=== PATIENT | female | born 1990 | race African-American/Black ===

== ENCOUNTER 2017-07-05 12:30 | Emergency (ER) | payer SELFPAY | END 2017-07-05 14:18 | disposition home or self-care (01) | LOC: ERS 12:30 | DX: J01.90 Acute sinusitis, unspecified (principal); E11.9 Type 2 diabetes mellitus without complications; F31.9 Bipolar disorder, unspecified; I10 Essential (primary) hypertension; Z79.84 Long term (current) use of oral hypoglycemic drugs; Z79.899 Other long term (current) drug therapy | CPT/HCPCS: 87081; 87430; 99283 ==

== ENCOUNTER 2017-07-20 09:34 | Emergency (ER) | payer SELFPAY ==
[2017-07-20 10:06] LABS: Bilirubin Negative (Negative); Blood, Urine Negative (Negative); Glucose, Urine (Dipstick) Negative (Negative); Ketone, Urine Negative (Negative); Nitrite Negative (Negative); Protein, Urine (Dipstick) Trace mg/dL (Neg-Trace); Urobilinogen 0.2 mg/dL (0.2-1.0)
[2017-07-20 10:33] LABS: #Eosinphils 0.2 thou/uL (0.0-0.7); #Lymphocytes 3.1 thou/uL (1.20-3.40); #Monocytes 0.4 thou/uL (0.11-0.59); #Neutrophils 2.6 thou/uL (1.40-6.50); %Basophils 0.3 % (0.0-1.0); %Eosinophils 2.6 % (0.0-10.0); %Lymphocytes 49.3 % (21.0-51.0); %Monocytes 6.1 % (0.0-10.0); Hematocrit 41.3 % (36.0-47.0); Mean Platelet Volume 6.3 fL (7.4-10.4); Red Blood Cell (RBC) Count 5.36 mill/uL (4.20-5.40); White Blood Cell (WBC) Count 6.3 thou/uL (4.8-10.8)
[2017-07-20 11:03] LABS: ALT (SGPT) 18 U/L (8-55); AST (SGOT) 15 U/L (5-34); Alkaline Phosphatase 79 U/L (40-150); Anion Gap 13 mmol/L (10-20); BUN (Urea Nitrogen) 6 mg/dL (7.0-18.7); Bilirubin, Total 0.2 mg/dL (0.2-1.2); Calc. Creatinine Clearance 0 mL/min (70-130); Calcium 9.5 mg/dL (7.8-10.44); Carbon Dioxide 23 mmol/L (22-29); Chloride 104 mmol/L (98-107); Estimated GFR-MDRD Greater than 90; Protein, Total 8.3 g/dL (6.0-8.3)
--- NOTE | 2017-07-20 13:21 | ULT ---
PELVIC ULTRASOUND: Date: 07/20/17 Transabdominal and endovaginal ultrasound of pelvis performed. HISTORY: Positive HCG. There is history of recent laparoscopic surgery at [facility] last week. There was apparently a concern of ectopic at that time. The HCG has risen, accordin g to the patient. FINDINGS: There is an irregularly shaped fluid collection in the endometrial cavity which may represent a smal l gestational sac. Measurements of this gestational sac would indicate a gestational age of 5 weeks/ 5 days. There is no evidence of yolk sac. There is no evidence of pole. The right ovary appears unremarkable. Color Doppler with spectral analysis shows flow to the right o vary. Images of the left ovary reveal a left ovarian cyst which measures up to 2.0 cm. Color Doppler with spectral analysis shows flow to the left ovary. There is a small to moderate amount of free fluid in the cul-de-sac. IMPRESSION: 1. There is an apparent gestational sac within the endometrial cavity with measurements indicating a 5 week/5 day gestation. No evidence of pole or yolk sac. 2. Left ovarian cyst is identified. 3. Moderate free pelvic fluid. Considerations include ectopic with pseudogestational sac, early gestation, and nonviable gestation with missed Ab. Recommend close follow-up and serial HCG levels. POS: [facility]
== END 2017-07-20 13:13 | disposition home or self-care (01) ==
LOC: ERS 09:34
DX: O20.0 Threatened abortion (principal); O99.340 Other mental disorders complicating pregnancy, unspecified trimester; F31.9 Bipolar disorder, unspecified; O99.280 Endocrine, nutritional and metabolic diseases complicating pregnancy, unspecified trimester; E11.9 Type 2 diabetes mellitus without complications; Z79.899 Other long term (current) drug therapy; Z79.84 Long term (current) use of oral hypoglycemic drugs
CPT/HCPCS: 36415; 76856; 80053; 81003; 84702; 85025

== ENCOUNTER 2017-08-12 07:29 | Emergency (ER) | payer MEDICAID, OTHER ==
[2017-08-12 08:21] LABS: Bilirubin Negative (Negative); Blood, Urine Negative (Negative); Glucose, Urine (Dipstick) Negative (Negative); Ketone, Urine Negative (Negative); Nitrite Negative (Negative); Protein, Urine (Dipstick) Trace mg/dL (Neg-Trace); Urobilinogen 0.2 mg/dL (0.2-1.0)
== END 2017-08-12 08:50 | disposition home or self-care (01) ==
LOC: ERS 07:29
DX: O23.591 Infection of other part of genital tract in pregnancy, first trimester (principal); O99.89 Other specified diseases and conditions complicating pregnancy, childbirth and the puerperium; M54.5 Low back pain; Z3A.09 9 weeks gestation of pregnancy
CPT/HCPCS: 81003; 81025; 99284

== ENCOUNTER 2018-07-14 14:59 | Emergency (ER) | payer MEDICAID, SELFPAY ==
[2018-07-14 15:42] LABS: Hemoglobin 10.1 g/dL (12.0-16.0); Mean Corpuscular HGB CONC 29.9 g/dL (32.0-36.0); Mean Corpuscular Hemoglobin 19.8 pg (27.0-31.0); Mean Corpuscular Volume 66.3 fL (78.0-98.0); Platelet Count 392 thou/uL (130-400); Red Blood Cell (RBC) Count 5.07 mill/uL (4.20-5.40)
[2018-07-14 15:56] LABS: ALT (SGPT) 15 U/L (8-55); AST (SGOT) 13 U/L (5-34); Alkaline Phosphatase 84 U/L (40-150); Anion Gap 10 mmol/L (10-20); BUN (Urea Nitrogen) 8 mg/dL (7.0-18.7); Bilirubin, Total 0.2 mg/dL (0.2-1.2); CK (CPK) 128 U/L (29-168); Calc. Creatinine Clearance 0 mL/min (70-130); Calcium 9.3 mg/dL (7.8-10.44); Carbon Dioxide 26 mmol/L (22-29); Chloride 104 mmol/L (98-107); Estimated GFR-MDRD Greater than 90; Globulin 3.5 g/dL (2.4-3.5); Glucose 173 mg/dL (70-105); Lipase 22 U/L (8-78); Potassium 3.6 mmol/L (3.5-5.1); Protein, Total 7.5 g/dL (6.0-8.3); Sodium 136 mmol/L (136-145)
[2018-07-14 16:00] LABS: CKMB 0.8 ng/mL (0-6.6); Troponin I Less than 0.010 ng/mL (< 0.028)
[2018-07-14 16:02] LABS: Anisocytosis SLIGHT = 6-15 cells (100X) (0-5/hpf); Band 3 % (5-11); Elliptocytes SLIGHT = 2-5 cells (100X) (0-1/hpf); Eosinophils 1 % (0-10); Hypochromia SLIGHT = 6-15 cells (100X) (0-5/hpf); Lymphocytes 52 % (21-51); MDiff Complete? YES; Microcytosis SLIGHT = 6-15 cells (100X) (0-5/hpf); Monocytes 8 % (0-10); Neutrophil 34 % (42-75); Ovalocytes SLIGHT = 2-5 cells (100X) (0-1/hpf); PLT Morphology Comment Appears Adequate; Polychromasia SLIGHT = 2-3 cells (100X) (0-2/hpf)
[2018-07-14] MEDS ORDERED: Azithromycin 250 MG TAB ONE (17:24)
[2018-07-14] MEDS ORDERED: cefTRIAXone\\ROCEPHIN 250 MG VIAL ONE (17:24)
[2018-07-14] MEDS ORDERED: Lidocaine 1% PF 5 ML VIAL ONE (17:24)
--- NOTE | 2018-07-14 17:28 | RAD ---
CHEST ONE VIEW PORTABLE: 07/14/18 HISTORY: 28-year-old female with history of chest pain and left arm pain. Diabetes mellitus. COMPARISON: 11/01/16. FINDINGS: Heart size is normal. The lungs are clear. No pneumonia, edema, or pleural effusion. There appears to be a small old granuloma in the right lower lobe. IMPRESSION: No acute intrathoracic disease. Stable from prior study. POS: [facility]
[2018-07-14 18:21] LABS: Pregnancy Test - Urine (BHCG) Negative (Negative); Pregu Control Background? CLEAR/WHITE (CLR/WHITE); Pregu Control Bar Appear? YES (CONTROL BAR)
[2018-07-14] MEDS ORDERED: Fluconazole 100 MG TAB PO SCH (18:45)
--- NOTE | 2018-07-14 21:33 | NM ---
VENTILATION PERFUSION STUDY: 07/14/18 HISTORY: Chest pain. RADIOPHARMACEUTICAL: 21.4 millicuries Xenon 133, gas inhaled and 5.9 millicuries technetium 99m labeled MAA, IV. VENTILATION STUDY: There is normal uptake in the distribution of the radiotracer seen within the lungs bilaterally. No v entilation defect is identified. Normal washout is present on washout imaging. PERFUSION STUDY: There is normal perfusion gradient. There is no evidence of a segmental or subsegmental defect is see n within the lungs bilaterally. No ventilation perfusion mismatch is seen. Chest x-ray also obtained on this date demonstrates that the lungs are clear. IMPRESSION: Very low probability for pulmonary embolus. POS: [facility]
== END 2018-07-14 21:30 | disposition home or self-care (01) ==
LOC: ERS 14:59
DX: R07.89 Other chest pain (principal); E11.9 Type 2 diabetes mellitus without complications; F31.9 Bipolar disorder, unspecified
CPT/HCPCS: 36415; 71045; 78582; 80053; 81025; 82550; 82553; 83690; 84484; 85025; 85379; 93005; 96372; A9540; A9558; J0696; J2001

== ENCOUNTER 2018-10-08 12:34 | Emergency (ER) | payer SELFPAY ==
--- NOTE | 2018-10-08 14:57 | RAD ---
CHEST 2 VIEWS: INDICATION: Cough and fever. COMPARISON: Prior exam dated 11/01/2016. FINDINGS: The lungs are clear. A small calcified granuloma in the right lower lobe is stable. Heart size is n ormal. No acute osseous abnormality is evident. IMPRESSION: No acute cardiopulmonary process. POS: [facility]
[2018-10-08 15:42] LABS: Bilirubin Negative (Negative); Blood, Urine Negative (Negative); Clarity CLOUDY (Clear); Glucose, Urine (Dipstick) Negative (Negative); Leukocyte Trace (Negative); Nitrite Negative (Negative); Protein, Urine (Dipstick) Negative (Neg-Trace); Urobilinogen 0.2 mg/dL (0.2-1.0)
[2018-10-08 15:43] LABS: Bacteria/HPF None Seen HPF (None Seen); Hyaline Casts/LPF 0-3 HYALINE CAST LPF (0-3 Hyaline); Pathc Cast-AUWi Flag 0.14 (0-2.49); RBC/HPF 0-3 HPF (0-3); WBC/HPF 0-3 HPF (0-3)
[2018-10-08 15:48] LABS: Pregnancy Test - Urine (BHCG) Negative (Negative); Pregu Control Background? CLEAR/WHITE (CLR/WHITE); Pregu Control Bar Appear? YES (CONTROL BAR)
== END 2018-10-08 17:58 | disposition home or self-care (01) ==
LOC: ERS 12:34
DX: J20.9 Acute bronchitis, unspecified (principal); E11.9 Type 2 diabetes mellitus without complications; F31.9 Bipolar disorder, unspecified; Z79.84 Long term (current) use of oral hypoglycemic drugs; Z79.899 Other long term (current) drug therapy
CPT/HCPCS: 71046; 81003; 81015; 81025; 87804

== ENCOUNTER 2023-03-09 01:26 | Emergency (ER) | payer OTHER ==
[2023-03-09] MEDS ORDERED: Dexamethasone 4 MG TAB ONE (15:13)
[2023-03-09] MEDS ORDERED: Acetaminophen 500 MG TAB ONE (15:14)
[2023-03-09] MEDS ORDERED: Oxymetazoline HCl 0.05% (30 ML BOT) ONE (15:14)
[2023-03-09] MEDS ORDERED: Ibuprofen 200 MG TAB ONE (15:14)
[2023-03-09 16:17] LABS: SARS-CoV-2 NAA Rapid Test DETECTED (NotDetected)
== END 2023-03-09 15:30 | disposition home or self-care (01) ==
LOC: ERS 13:26
DX: B34.9 Viral infection, unspecified (principal); E11.9 Type 2 diabetes mellitus without complications; I10 Essential (primary) hypertension; Z79.84 Long term (current) use of oral hypoglycemic drugs; Z20.822 Contact with and (suspected) exposure to COVID-19
CPT/HCPCS: 99283; J8540

== ENCOUNTER 2023-10-29 11:09 | Emergency (ER) | payer OTHER ==
[2023-10-29 12:28] LABS: Pregnancy Test - Urine (BHCG) Negative (Negative)
[2023-10-29 12:29] LABS: Bacteria/HPF 1+ HPF (None Seen); Bilirubin Negative (Negative); Blood, Urine Negative (Negative); CAUTI Indications for Culture Dysuria,urgency,freq; Clarity Turbid (Clear); Glucose, Urine (Dipstick) Normal (Negative); Ketone, Urine Negative (Negative); Leukocyte Negative Leu/uL (Negative); Nitrite Negative (Negative); Pregu Control Background? CLEAR/WHITE (CLR/WHITE); Pregu Control Bar Appear? YES (CONTROL BAR); Protein, Urine (Dipstick) Negative (Neg-Trace); RBC/HPF None Seen HPF (0-3); Urobilinogen Normal mg/dL (Less than 2); WBC/HPF 0-3 HPF (0-3); pH, Urine 7.5 (5.0-9.0)
[2023-10-29 12:30] LABS: Urine Culture Reflex No No
[2023-10-29] MEDS ORDERED: Dexamethasone 10 MG/ML VIAL ONE (13:41)
[2023-10-29 13:46] LABS: SARS-CoV-2 NAA Rapid Test Not Detected (NotDetected)
== END 2023-10-29 13:39 | disposition home or self-care (01) ==
LOC: ERS 11:09
DX: N39.0 Urinary tract infection, site not specified (principal); J45.901 Unspecified asthma with (acute) exacerbation; E11.9 Type 2 diabetes mellitus without complications; D64.9 Anemia, unspecified; Z87.891 Personal history of nicotine dependence; Z79.84 Long term (current) use of oral hypoglycemic drugs; Z79.899 Other long term (current) drug therapy
CPT/HCPCS: 71045; 81001; 81025; 96372; J1100